=== PATIENT | female | born 1995 | race African-American/Black ===

== ENCOUNTER 2016-10-27 19:51 | Emergency (ER) | payer MEDICAID ==
[~2016-10-27] VITALS: Ht 157.5 cm; Wt 95.3 kg
[2016-10-27 23:12] VITALS: BP 136/87
[2016-10-27] MEDS ORDERED: IBUPROFEN 800 MG TAB PO ONE (23:45)
== END 2016-10-28 | disposition left against medical advice (07) ==
LOC: ER 19:54
DX: S93.601A Unspecified sprain of right foot, initial encounter (principal); S20.211A Contusion of right front wall of thorax, initial encounter; W01.0XXA Fall on same level from slipping, tripping and stumbling without subsequent striking against object, initial encounter; Y93.89 Activity, other specified; Y99.8 Other external cause status; Y92.89 Other specified places as the place of occurrence of the external cause
CPT/HCPCS: 71101; 73620